=== PATIENT | male | born 1960 | race Caucasian/White ===

== ENCOUNTER 2016-10-12 12:37 | Day surgery (SDC) | payer OTHER ==
[~2016-10-12] VITALS: Ht 165.1 cm; Wt 73.6 kg
[2016-10-12 13:34] VITALS: Ht 165.1 cm; Wt 73.6 kg
[2016-10-12 14:01] VITALS: BP 119/69; PULSE 56; RESP 12
[2016-10-12] MEDS ORDERED: VIT B12 (14:51)
[2016-10-12 15:20] VITALS: BP 111/70; PULSE 51; RESP 22
--- NOTE | 2016-10-13 04:57 | GILP ---
DATE OF PROCEDURE: 10/12/2016 PREOPERATIVE DIAGNOSIS: Screening colonoscopy. POSTOPERATIVE DIAGNOSES: 1. Colonoscopy all the way to the cecum. 2. Internal hemorrhoids. 3. No colon neoplasm was identified. PROCEDURE PERFORMED: Colonoscopy. SURGEON: Chelita Maharaj MD. INDICATION FOR PROCEDURE: Mr. Josue Almanza is a 55-year-old male patient who was scheduled for a screening colonoscopy. The procedure and possible complications were well explained to the patient. The patient understood and consented to the procedure. DESCRIPTION OF PROCEDURE: Under the influence of fentanyl and Versed the colonoscope was carefully introduced in the rectum and under direct vision it was advanced all the way to the cecum. Findings, the patient had internal hemorrhoids. No colon neoplasm was identified. He tolerated the procedure very well and there was no complication from the procedure. At the end of procedure he was awake with stable vital signs and he was discharged home in the care of his family. IMPRESSION: 1. Colonoscopy all the way to the cecum. 2. Internal hemorrhoids. 3. No colon neoplasm was identified. PLAN: Next screening colonoscopy in 10 years. Dictated By: MD ZACHARY Beebe/demetri/nagi /Document#: [id number] CC: Chelita Maharaj MD;*EndCC*
[2016-10-13] MEDS ORDERED: FENTAnyl 50 MCG/ML VIAL ONE (18:02)
[2016-10-13] MEDS ORDERED: MIDAZOLAM 1 MG/ML 2 ML INJ ONE (18:02)
== END 2016-10-12 16:48 | disposition home or self-care (01) ==
LOC: GIL 12:37
PROVIDERS: ATTEND Internal Medicine Gastroenterology
DX: Z12.11 Encounter for screening for malignant neoplasm of colon (principal); K64.8 Other hemorrhoids
CPT/HCPCS: J2250; J3010

== ENCOUNTER → 2017-04-05 | Outpatient (CLI) | END | disposition home or self-care (01) ==